=== PATIENT | male | born 1995 | race African-American/Black ===

== ENCOUNTER 2021-07-04 22:33 | Emergency (ER) | payer SELFPAY ==
[~2021-07-04] VITALS: Ht 182.9 cm; Wt 102.3 kg
[2021-07-04 22:43] VITALS: BP 130/74; TEMP 98.1
[2021-07-05 00:09] LABS: STREP SCREEN NEGATIVE
[2021-07-05 01:41] VITALS: PULSE 60
== END 2021-07-05 01:45 | disposition home or self-care (01) ==
LOC: COL.ER 22:33
PROVIDERS: Physician Assistant
DX: J10.1 Influenza due to other identified influenza virus with other respiratory manifestations (principal); Z20.822 Contact with and (suspected) exposure to COVID-19

== ENCOUNTER 2021-12-30 09:59 | Emergency (ER) | payer SELFPAY ==
[~2021-12-30] VITALS: Ht 185.4 cm; Wt 104.5 kg
[2021-12-30 10:04] VITALS: TEMP 98.1
[2021-12-30] MEDS ORDERED: BACTRIM DS 8001 TAB PO (10:43)
[2021-12-30 10:51] VITALS: BP 148/68; PULSE 61
== END 2021-12-30 10:54 | disposition home or self-care (01) ==
LOC: COL.ER 09:59
DX: L02.31 Cutaneous abscess of buttock (principal); L03.317 Cellulitis of buttock

== ENCOUNTER 2023-11-11 13:02 | Emergency (ER) | payer OTHER ==
[~2023-11-11] VITALS: Ht 185.4 cm; Wt 106.8 kg
[~2023-11-11 13:02] MED LIST: AMOXICILLIN 50500 MG PO; BACTRIM DS 8001 TAB PO; FIRST-MOUTHWASH1 KIT PO
[2023-11-11 13:11] VITALS: TEMP 98.5
[2023-11-11] MEDS ORDERED: VALTREX1 GM PO (14:02)
[2023-11-11] MEDS ORDERED: FIRST-MOUTHWASH1 KIT PO (14:03)
[2023-11-11 14:24] VITALS: BP 131/62; PULSE 64
== END 2023-11-11 14:24 | disposition home or self-care (01) ==
LOC: COL.ER 13:02
DX: B08.5 Enteroviral vesicular pharyngitis (principal)

== ENCOUNTER 2024-04-30 00:55 | Emergency (ER) | payer OTHER ==
[~2024-04-30] VITALS: Ht 185.4 cm; Wt 100.0 kg
[~2024-04-30 00:55] MED LIST changes: +VALTREX1 GM PO
[2024-04-30 01:03] VITALS: BP 132/87; TEMP 98
[2024-04-30] MEDS ORDERED: ZOFRAN ODT4 MG PO (01:42)
[2024-04-30 02:00] VITALS: PULSE 97
== END 2024-04-30 02:07 | disposition home or self-care (01) ==
LOC: COL.ER 00:55
DX: R11.2 Nausea with vomiting, unspecified (principal); R10.31 Right lower quadrant pain; R10.32 Left lower quadrant pain